=== PATIENT | female | born 2000 | race Hispanic/Latino ===

== ENCOUNTER 2020-09-24 22:49 | Emergency (ER) | payer OTHER ==
[~2020-09-24] VITALS: Ht 149.9 cm; Wt 78.0 kg
[2020-09-24] MEDS ORDERED: ACETAMINOPHEN500 MG PO (23:30)
[2020-09-24] MEDS ORDERED: DOXYCYCLINE HY100 MG PO (23:30)
[2020-09-24] MEDS ORDERED: CLEOCIN HCL300 MG PO (23:30)
[2020-09-24 23:49] VITALS: BP 129/72
== END 2020-09-24 23:49 | disposition home or self-care (01) ==
LOC: FSED 23:14
DX: L02.415 Cutaneous abscess of right lower limb (principal)
CPT/HCPCS: 99282